=== PATIENT | male | born 1975 | race Caucasian/White ===

== ENCOUNTER → 2018-12-13 | Outpatient (CLI) | payer OTHER | LOC: COL.RAD 13:05 | DX: N50.89 Other specified disorders of the male genital organs (principal); N50.811 Right testicular pain ==

== ENCOUNTER → 2021-03-05 | Outpatient (CLI) | payer OTHER | LOC: COL.RAD 10:40 | DX: N40.0 Benign prostatic hyperplasia without lower urinary tract symptoms (principal); N20.0 Calculus of kidney; K57.30 Diverticulosis of large intestine without perforation or abscess without bleeding; K76.0 Fatty (change of) liver, not elsewhere classified; Z85.47 Personal history of malignant neoplasm of testis | CPT/HCPCS: Q9967 ==

== ENCOUNTER → 2023-04-19 | Outpatient (CLI) | payer OTHER ==
[~2023-04-19] MED LIST: Iohexol 300 - 100 ML VIAL IV ONE; NORCO 325 MG-51 TAB PO; NS 100 ML IV SCH; ZOFRAN ODT4 MG PO
== END ==
LOC: COL.RAD 08:31
DX: K76.0 Fatty (change of) liver, not elsewhere classified (principal); Z85.47 Personal history of malignant neoplasm of testis
CPT/HCPCS: Q9967